=== PATIENT | female | born 1970 | race Caucasian/White ===

== ENCOUNTER 2016-10-21 19:11 | Emergency (ER) | payer BC, OTHER ==
[2016-10-21 19:17] VITALS: BP 115/73; PULSE 82; RESP 18; TEMP 98.7; O2SAT 99
[2016-10-21] MEDS ORDERED: Oxycodone/Acetaminophen 5/325 mg Tab PO STA (19:38)
[2016-10-21] MEDS ORDERED: Oxycodone/Acetaminophen 5/325 mg Tab ONE (19:42)
--- NOTE | 2016-10-21 20:11 | ED PDOC ---
Lower Extremity Pain/Injury Time Seen by Provider: 10/21/16 19:26 Chief Complaint (Nursing): Lower Extremity Problem/Injury Chief Complaint (Provider): right foot pain History Per: Patient History/Exam Limitations: no limitations Onset/Duration Of Symptoms: Hrs (x 1) Additional Complaint(s): Neela Phelps is a 45 year old female, with no previous medical history, who presents to the ED with complaints of right foot pain after twisting her foot on the sidewalk approximately an hour ago. Patient reports hearing a popping sound and not being able to ambulate after. PMD: none provided Past Medical History Reviewed: Historical Data, Nursing Documentation, Vital Signs Vital Signs: Last Vital Signs Temp 98.7 F 10/21/16 19:15 Pulse 82 10/21/16 19:15 Resp 18 10/21/16 19:15 BP 115/73 10/21/16 19:15 Pulse Ox 99 10/21/16 19:15 - Medical History PMH: No Chronic Diseases - Surgical History Surgical History: No Surg Hx - Family History Family History: States: Unknown Family Hx - Home Medications Home Medications: Ambulatory Orders Medication Instructions Recorded Naproxen [Naprosyn] 500 mg PO BID PRN #15 tablet 10/21/16 - Allergies Allergies/Adverse Reactions: Allergies Allergy/AdvReac Type Severity Reaction Status Date / Time No Known Allergies Allergy Verified 10/21/16 19:15 Review of Systems ROS Statement: Except As Marked, All Systems Reviewed And Found Negative Musculoskeletal: Positive for: Leg Pain (right foot ) Physical Exam - Reviewed Nursing Documentation Reviewed: Yes Vital Signs Reviewed: Yes - Physical Exam Appears: Positive for: Well, Non-toxic, No Acute Distress Head Exam: Positive for: ATRAUMATIC, NORMAL INSPECTION, NORMOCEPHALIC Cardiovascular/Chest: Positive for: Regular Rate, Rhythm Respiratory: Positive for: CNT, Normal Breath Sounds Pulses-Dorsalis Pedis (R): 2+ Extremity: Positive for: Normal ROM, Capillary Refill (< 2 seconds ), Other ( ecchymosis to the anterior lateral foot. ). Negative for: Tenderness (lateral malleolus ), Calf Tenderness, Deformity Neurologic/Psych: Positive for: Alert, Oriented - ECG O2 Sat by Pulse Oximetry: 99 (RA) Pulse Ox Interpretation: Normal Medical Decision Making Medical Decision Making: Initial Impression: Foot sprain vs fracture Initial Plan: * urine * motrin * percocet * x-ray right foot * x-ray right ankle * reevaluation Podiatry consulted. Scribe Attestation: Documented by Meredith Blanton, acting as a scribe for Meredith Hill MD. Provider Scribe Attestation: All medical record entries made by the Scribe were at my direction and personally dictated by me. I have reviewed the chart and agree that the record accurately reflects my personal performance of the history, physical exam, medical decision making, and the department course for this patient. I have also personally directed, reviewed, and agree with the discharge instructions and disposition. Disposition - Clinical Impression Clinical Impression: Foot sprain - Disposition Referrals: Geovany Barboza DPM [Staff Provider] - Disposition Time: 21:56 Condition: STABLE Prescriptions: Naproxen [Naprosyn] 500 mg PO BID PRN #15 tablet PRN Reason: Pain, Moderate (4-7) Instructions: Foot Sprain (ED)
--- NOTE | 2016-10-21 21:25 | CP.PCM.CON ---
History of Present Illness - History of Present Illness History of Present Illness: PODIATRY CONSULT NOTE FOR DR. BARBOZA: This is a 45 yo female pt w/ unremarkable pmhx who presents to ED today with complaint of right foot pain/swelling. Pt says that she was out walking her dogs 2 hours ago and fell on the curb. Says her right foot twisted and heard a "popping" sound in the right foot. Says she was unable to ambulate and was brought to the ED. Says the pain radiates from the back of her foot to the toes. Says she does feel some tingling in the 1st, 4th and 5th toes. Denies any other injuries from the fall. Denies any other pedal complaints. Review of Systems - Review of Systems Review of Systems: All systems reviewed and found to be negative except pertinent HPI findings Past Patient History - Past Social History Smoking Status: Unknown If Ever Smoked - PSYCHIATRIC Hx Substance Use: No Meds Allergies/Adverse Reactions: Allergies Allergy/AdvReac Type Severity Reaction Status Date / Time No Known Allergies Allergy Verified 10/21/16 19:15 Physical Exam - Constitutional Appears: Well, Non-toxic, No Acute Distress - Extremities Exam Extremities exam: Negative for: calf tenderness Additional comments: RLE exam: VASC- DP/PT pulses palpable (2/4), skin temp runs warm to cool, cap refill < 3 sec to digits x 5, moderate palpable edema noted to dorsal-lateral mid-foot and rearfoot DERM- no open lesions, no erythema, slight formation of ecchymosis noted dorsal- lateral foot NEURO-gross pedal sensation is intact ORTHO- pedal muscle strength 5/5 in all directions, pt able to wiggle all toes freely, tenderness noted to palpation of dorsal-lateral aspect of mid-foot and rearfoot, tenderness on STJ inversion and eversion, no gross deformities seen - Neurological Exam Neurological exam: Alert, CN II-XII Intact, Oriented x3 - Psychiatric Exam Psychiatric exam: Normal Affect, Normal Mood Results - Vital Signs Recent Vital Signs: Last Vital Signs Temp 98.7 F 10/21/16 19:15 Pulse 82 10/21/16 19:15 Resp 18 10/21/16 19:15 BP 115/73 10/21/16 19:15 Pulse Ox 99 10/21/16 20:19 Assessment & Plan - Assessment and Plan (Free Text) Assessment: 45 yo female w/ unremarkable pmx w/ right foot sprain secondary to fall. Plan: -Pt S&E at bedside in ED -Plan discussed w/ attending Dr. Barboza -Chart, vitals reviewed -R foot/ankle x-rays reviewed: no evidence of acute fx or dislocations, prominent soft tissue edema noted to lateral aspect of foot -Addressed all questions and concerns with patient -Compressive dressing: cast padding/CIPRIANO bandage. Advised pt to keep c/d/i -Strict NWB with crutches + rest, ice, elevation, NSAIDs for pain/swelling -Pt to f/u with Dr. Barboza at the office ([place], [place])
--- NOTE | 2016-10-22 10:23 | RAD ---
PROCEDURE: Right and right ankle dated 10/21/2016 AP oblique and lateral views of the right ankle as well as PA obliques and lateral views of the right foot performed. HISTORY: Twisting injury COMPARISON: No prior study available for comparison FINDINGS: BONES: Current study reveals no definitive radiographic evidence of acute displaced fracture nor dislocation. The osseous structures appear intact. Ankle mortise maintained. Talar dome intact No bony destructive changes. There is a small plantar surface calcaneal enthesophyte. The bones of the foot appear intact as well JOINTS: Joint spaces preserved. SOFT TISSUES: Soft tissues appear grossly unremarkable OTHER FINDINGS: None. IMPRESSION: No acute displaced fracture nor dislocation. . If symptoms persist or occult fracture suspected clinically consider repeat radiographs in 5-10 days as most fractures should become radiographically evident this timeframe. Alternatively, MRI could be obtained if pain persists.
== END 2016-10-21 22:16 | disposition home or self-care (01) ==
LOC: H.ER 19:11
DX: S99.911A Unspecified injury of right ankle, initial encounter (principal); X50.9XXA Other and unspecified overexertion or strenuous movements or postures, initial encounter; Y92.410 Unspecified street and highway as the place of occurrence of the external cause